=== PATIENT | female | born 1980 | race American Indian/Alaskan Native ===

== ENCOUNTER 2021-07-02 20:12 | Emergency (ER) | payer SELFPAY ==
[2021-07-02 20:31] VITALS: BP 161/93
--- NOTE | 2021-07-02 21:44 | Emergency Department Report ---
ED General Adult HPI - General Chief complaint: Extremity Injury, Upper Stated complaint: neck/shoulder pain Time Seen by Provider: 07/02/21 21:24 Source: patient Mode of arrival: Ambulatory Limitations: No Limitations - History of Present Illness Initial comments: 40-year-old female patient presents to the emergency department with complaints of traumatic left shoulder pain and neck pain with associated left upper extremity numbness starting 2 days ago. Patient states she was wrestling when the injury occurred. The numbness is localized to the proximal half of the left upper extremity and occurs intermittently with certain positions. No history of prior neck or back surgeries. Denies headache, weakness, paralysis, back pain. Denies all other complaints at this time. - Related Data Previous Rx's Medication Instructions Recorded Last Taken Type Lidocaine [Lidoderm] 1 each TP BID #20 adh..patch 07/02/21 Unknown Rx Naproxen 500 mg PO BID #20 tablet 07/02/21 Unknown Rx Allergies Allergy/AdvReac Type Severity Reaction Status Date / Time Penicillins Allergy Unknown Verified 07/02/21 20:31 ED Review of Systems ROS: Stated complaint: SEVERE BACK/SHOULDER PAIN Other details as noted in HPI Other: CARDIOVASCULAR: Negative for chest pain. PULMONARY: Negative for dyspnea. GASTROINTESTINAL: Negative for abdominal pain. MUSCULOSKELETAL: Positive for neck pain and shoulder pain. NEUROLOGICAL: Negative for headache. INTEGUMENTARY: Negative for ecchymosis. ED Past Medical Hx - Past Medical History Previous Medical History?: No - Surgical History Past Surgical History?: No - Medications Home Medications: Home Medications Medication Instructions Recorded Confirmed Last Taken Type Lidocaine [Lidoderm] 1 each TP BID #20 adh..patch 07/02/21 Unknown Rx Naproxen 500 mg PO BID #20 tablet 07/02/21 Unknown Rx ED Physical Exam - General Limitations: No Limitations - Other Other exam information: General: Awake, appropriately interactive, no acute distress. Neck: Lower cervical spine tenderness without step-offs. Diminished sensation to light touch along proximal aspect of C6 and C8 nerve root distribution of left upper extremity. Strength is 5/5 bilaterally upper extremities. Active range of motion of cervical spine intact in all directions. Cardiovascular: Normal peripheral perfusion. Pulmonary: No respiratory distress. Patient is speaking normally without use of accessory muscles. Skin: No apparent rashes or lesions. Neurological: No facial asymmetry. Speech is clear. Follows commands. Patient is alert and oriented. Musculoskeletal: Diffuse left shoulder tenderness without obvious deformity or dislocation. Range of motion intact but painful in all directions. Distal neurovascular and motor/sensory function intact. Psych: Cooperative. Appropriate mood and affect. ED Course Vital Signs 07/02/21 20:28 Temperature 98.3 F Pulse Rate 74 Respiratory 18 Rate Blood Pressure 161/93 O2 Sat by Pulse 97 Oximetry ED Medical Decision Making - Medical Decision Making Differential diagnosis including but not limited to: sprain/strain, fracture, spinal cord injury, dislocation, disc herniation, contusion CT cervical spine indication = trauma + cervical spine tenderness + sensory deficit On reevaluation, patient remains stable. Repeat neurological exam unchanged. X-rays of the shoulder without acute process. CT of the cervical spine without acute process. Patient will likely require outpatient MRI for further evaluation and definitive diagnosis. Patient is > 48 hours status post injury with no paralysis, weakness, respiratory compromise, or difficulty with ambulati on to suggest traumatic spinal cord injury. No clinical indication for further diagnostic work-up on an emergent basis at this time. Patient will be discharged home with appropriate analgesics and referred to [facility]. Patient expressed understanding and is agreeable to plan of care. Strict return precautions provided. Repeat exam is unremarkable and benign. History, exam, diagnostic testing, and current condition do not suggest worrisome pathology to warrant further testing, continued ED treatment, admission, or surgical evaluation at this point. Given the low probability of a significant medical illness, it would be more likely to result in harm than benefit to perform further testing at this stage. Discussed findings, presumptive diagnosis, need for follow-up and specific signs/symptoms that should prompt immediate return to the emergency department. Instructions were explained in detail to the patient in addition to giving written discharge information. Patient expressed understanding and was given the opportunity to ask questions, all of which were satisfactorily answered prior to discharge home. Critical care attestation.: If time is entered above; I have spent that time in minutes in the direct care of this critically ill patient, excluding procedure time. ED Disposition Clinical Impression: Neck pain Left shoulder strain Qualifiers: Encounter type: initial encounter Qualified Code(s): S46.912A - Strain of unspecified muscle, fascia and tendon at shoulder and upper arm level, left arm, initial encounter Disposition: HOME / SELF CARE / HOMELESS Is pt being admited?: No Does the pt Need Aspirin: No Condition: Stable Instructions: Muscle Strain, [id number] Additional Instructions: CT of the cervical spine (neck) and x-rays of the shoulder are within normal limits. Take Tylenol every 4 hours as needed for pain. Take Naprosyn twice daily with food as needed for pain. Apply Lidoderm patches to affected area as needed for pain. Apply heat to affected area as needed for pain. Gradually advance physical activity slowly as tolerated. Follow-up with [facility] this week. Call tomorrow to schedule an appointment. See referral information below. [facility] at [facility] will help you coordinate physical therapy and/or outpatient MRI as clinically indicated. Return to the emergency department immediately for new or worsening symptoms. Prescriptions: Lidocaine [Lidoderm] 1 each TP BID #20 adh..patch Naproxen 500 mg PO BID #20 tablet Referrals: [facility] [Provider Group] - 3-5 Days Time of Disposition: 22:37
--- NOTE | 2021-07-02 22:25 | Cat Scan Report ---
CT cervical spine wo con INDICATION / CLINICAL INFORMATION: Trauma from fall, L.U.E. numbness, neck stiffness. TECHNIQUE: Axial, coronal and sagittal images All CT scans at this location are performed using CT dose reductio n for ALARA by means of automated exposure control. COMPARISON: None available. FINDINGS: Mild straightening of normal cervical spine alignment. No prevertebral soft tissue swelling is seen. Odontoid is intact. Skull base appears normal.. No subluxation is seen. Facets are well aligned IMPRESSION: 1. No acute fractures seen. If patient's symptoms persist MRI follow-up could be performed. Signer Name: Demar Hines MD Signed: 07/02/2021 10:20 PM Workstation Name: [id number]
--- NOTE | 2021-07-02 22:31 | XRay Report ---
LEFT SHOULDER 3 VIEW(S) INDICATION / CLINICAL INFORMATION: trauma left shoulder pain COMPARISON: None available. FINDINGS: BONES / JOINT(S): No acute fracture or subluxation. No significant arthritis. SOFT TISSUES: No significant abnormality. ADDITIONAL FINDINGS: None. Signer Name: Sreedhar Matson MD Signed: 07/02/2021 10:26 PM Workstation Name: [id number]
== END 2021-07-02 23:34 | disposition home or self-care (01) ==
LOC: ED 20:12
DX: S46.912A Strain of unspecified muscle, fascia and tendon at shoulder and upper arm level, left arm, initial encounter (principal); M54.2 Cervicalgia; W51.XXXA Accidental striking against or bumped into by another person, initial encounter; Y93.72 Activity, wrestling; Y92.89 Other specified places as the place of occurrence of the external cause; Y99.8 Other external cause status
CPT/HCPCS: 72125; 99283